=== PATIENT | female | born 1935 | race Caucasian/White ===

== ENCOUNTER 2022-09-03 08:28 | Outpatient (REF) | payer MEDICARE, SELFPAY ==
[2022-09-03 08:47] VITALS: BP 159/77; PULSE 73; RESP 16; TEMP 36.7; O2SAT 95
[2022-09-03 08:50] VITALS: BMI 24.3
== END 2022-09-03 08:29 | disposition home or self-care (01) ==
LOC: HO.MS 08:28
PROVIDERS: PCP Internal Medicine; Visit Provider Ophthalmology
PROC: (CPT 66821; principal; 2022-09-03 12:10)
DX: H26.492 Other secondary cataract, left eye (principal); Z96.1 Presence of intraocular lens; I10 Essential (primary) hypertension; Z86.711 Personal history of pulmonary embolism; Z79.01 Long term (current) use of anticoagulants; Z79.899 Other long term (current) drug therapy
CPT/HCPCS: 66821